=== PATIENT | female | born 1970 | race American Indian/Alaskan Native ===

== ENCOUNTER 2019-05-11 11:00 | Emergency (ER) | payer MEDICARE ==
--- NOTE | 2019-05-11 11:13 | Event Note ---
ED Screening Note Date of service: 05/11/19 Time: 11:12 ED Screening Note: 49 y/o female comes in for psych eval. This initial assessment/diagnostic orders/clinical plan/treatment(s) is/are subject to change based on patients health status, clinical progression and re- assessment by fellow clinical providers in the ED. Further treatment and workup at subsequent clinical providers discretion. Patient/guardian urged not to elope from the ED as their condition may be serious if not clinically assessed and managed. Initial orders include:
[2019-05-11 11:40] LABS: Basophils # (Auto) 0.1 K/mm3 (0.0-0.1); Basophils % (Auto) 1.1 % (0.0-1.8); Eosinophils # (Auto) 0.1 K/mm3 (0.0-0.4); Eosinophils % (Auto) 0.8 % (0.0-4.3); Hemoglobin 13.5 gm/dl (10.1-14.3); Lymphocytes # (Auto) 2.8 K/mm3 (1.2-5.4); Lymphocytes % (Auto) 21.9 % (13.4-35.0); Mean Corpuscular HGB Conc 33 % (30-34); Mean Corpuscular Volume 79 fl (79-97); Monocytes # (Auto) 0.9 K/mm3 (0.0-0.8); Monocytes % (Auto) 7.4 % (0.0-7.3); Platelet Count 373 K/mm3 (140-440); Red Blood Count 5.19 M/mm3 (3.65-5.03); Red Cell Distribution Width 16.6 % (13.2-15.2)
[2019-05-11 12:03] LABS: BUN/Creatinine Ratio 23; Blood Urea Nitrogen 18 mg/dL (7-17); Calcium 9.2 mg/dL (8.4-10.2); Hemolysis Index 8
--- NOTE | 2019-05-11 12:15 | Emergency Department Report ---
ED Psych HPI - General Chief Complaint: Psych Stated Complaint: SI Time Seen by Provider: 05/11/19 11:12 Source: patient Mode of arrival: Ambulatory - History of Present Illness Initial Comments: 49-year-old female with a history of psychiatric disorder residing at the [facility] since this morning. She states that she was supposed to get transport to a homeless [facility]. However transport did not arrive and she claims she was just released. She states that she has multiple medical problems to include diabetes arthritis and requires a walker to ambulate. Thereby she became depressed and suicidal secondary to her homelessness. She is cheerful and quite honest about her predicament. She is not taking an overdose or expressible defined a plan. MD Complaint: suicidal ideation, feels depressed -: hour(s) Associated Psychiatric Symptoms: none, other History of same: Yes Quality: constant Improves With: none Worsens With: none Context: significant life stressor Associated Symptoms: denies other symptoms Treatments Prior to Arrival: none - Related Data Home Medications Medication Instructions Recorded Confirmed Last Taken Amlodipine Besylate [Norvasc] 10 mg PO ONCE 05/11/19 05/11/19 Unknown Benztropine Mesylate 0.5 mg PO TID 05/11/19 05/11/19 Unknown Gabapentin [Neurontin] 100 mg PO Q6HR 05/11/19 05/11/19 Unknown Lisinopril [Zestril TAB] 10 mg PO QDAY 05/11/19 05/11/19 Unknown Paliperidone Palmitate(Nf) [Invega 234 mg IM 05/11/19 05/11/19 Unknown Sustenna(Nf)] Sertraline [Zoloft] 50 mg PO QDAY 05/11/19 05/11/19 Unknown Trazodone HCl 50 mg PO 05/11/19 Unknown metFORMIN [Glucophage] 500 mg PO BID 05/11/19 05/11/19 Unknown Allergies Allergy/AdvReac Type Severity Reaction Status Date / Time No Known Allergies Allergy Unverified 05/11/19 11:04 ED Review of Systems ROS: Stated complaint: SI Other details as noted in HPI Constitutional: denies: chills, fever Eyes: denies: eye pain, eye discharge, vision change ENT: denies: ear pain, throat pain Respiratory: denies: cough, shortness of breath, wheezing Cardiovascular: denies: chest pain, palpitations Endocrine: no symptoms reported Gastrointestinal: denies: abdominal pain, nausea, diarrhea Genitourinary: denies: urgency, dysuria, discharge Musculoskeletal: denies: back pain, joint swelling, arthralgia Skin: denies: rash, lesions Neurological: denies: headache, weakness, paresthesias Psychiatric: depression, suicidal thoughts. denies: anxiety Hematological/Lymphatic: denies: easy bleeding, easy bruising ED Past Medical Hx - Past Medical History Previous Medical History?: Yes Hx Hypertension: Yes Hx Psychiatric Treatment: Yes (Depression, Bi Polar, Schizoaffective disorder) - Surgical History Past Surgical History?: Yes Hx Appendectomy: Yes Additional Surgical History: D and C - Social History Smoking Status: Current Every Day Smoker Substance Use Type: None - Medications Home Medications: Home Medications Medication Instructions Recorded Confirmed Last Taken Type Amlodipine Besylate [Norvasc] 10 mg PO ONCE 05/11/19 05/11/19 Unknown History Benztropine Mesylate 0.5 mg PO TID 05/11/19 05/11/19 Unknown History Gabapentin [Neurontin] 100 mg PO Q6HR 05/11/19 05/11/19 Unknown History Lisinopril [Zestril TAB] 10 mg PO QDAY 05/11/19 05/11/19 Unknown History Paliperidone Palmitate(Nf) [Invega 234 mg IM 05/11/19 05/11/19 Unknown History Sustenna(Nf)] Sertraline [Zoloft] 50 mg PO QDAY 05/11/19 05/11/19 Unknown History Trazodone HCl 50 mg PO 05/11/19 Unknown History metFORMIN [Glucophage] 500 mg PO BID 05/11/19 05/11/19 Unknown History ED Physical Exam - General Limitations: Physical Limitation General appearance: alert, in no apparent distress, obese - Head Head exam: Present: atraumatic, normocephalic - Eye Eye exam: Present: normal appearance. Absent: scleral icterus - ENT ENT exam: Present: mucous membranes moist - Neck Neck exam: Present: normal inspection. Absent: meningismus - Respiratory Respiratory exam: Present: normal lung sounds bilaterally. Absent: respiratory distress - Cardiovascular Cardiovascular Exam: Present: regular rate, normal rhythm. Absent: systolic murmur, diastolic murmur, rubs, gallop - GI/Abdominal GI/Abdominal exam: Present: soft, normal bowel sounds. Absent: tenderness, guarding - Extremities Exam Extremities exam: Present: normal inspection - Back Exam Back exam: Present: normal inspection - Neurological Exam Neurological exam: Present: alert, oriented X3, CN II-XII intact. Absent: motor sensory deficit - Psychiatric Psychiatric exam: Present: normal affect, anxious - Skin Skin exam: Present: warm, dry, intact, normal color. Absent: rash ED Course Vital Signs 05/11/19 11:09 Temperature 98.0 F Pulse Rate 111 H Respiratory 24 Rate Blood Pressure 113/55 O2 Sat by Pulse 97 Oximetry - Reevaluation(s) Reevaluation #1: Mental health to see. The patient's suicidal ideation and appears to be entirely dependent on her homelessness. Therefore, if mental health does not conclude that she is a suicidal risk and she will be assisted with case management. 05/11/19 12:31 Reevaluation #2: 1013 was executed. The patient will be placed in a fci or psychiatric facility pending decision by the psychiatric staff. 05/11/19 19:18 ED Medical Decision Making - Lab Data Result diagrams: 05/11/19 11:21 05/11/19 11:21 Laboratory Results - last 24 hr 05/11/19 05/11/19 05/11/19 11:21 11:21 11:21 WBC 12.6 H RBC 5.19 H Hgb 13.5 Hct 41.0 MCV 79 MCH 26 L MCHC 33 RDW 16.6 H Plt Count 373 Lymph % (Auto) 21.9 Daniels % (Auto) 7.4 H Eos % (Auto) 0.8 Baso % (Auto) 1.1 Lymph # 2.8 Daniels # 0.9 H Eos # 0.1 Baso # 0.1 Seg Neutrophils % 68.8 Seg Neutrophils # 8.7 H Sodium 141 Potassium 4.5 Chloride 101.6 Carbon Dioxide 25 Anion Gap 19 BUN 18 H Creatinine 0.8 Estimated GFR > 60 BUN/Creatinine Ratio 23 Glucose 80 Calcium 9.2 Salicylates < 0.3 L Acetaminophen Plasma/Serum Alcohol 05/11/19 05/11/19 11:21 11:21 WBC RBC Hgb Hct MCV MCH MCHC RDW Plt Count Lymph % (Auto) Daniels % (Auto) Eos % (Auto) Baso % (Auto) Lymph # Daniels # Eos # Baso # Seg Neutrophils % Seg Neutrophils # Sodium Potassium Chloride Carbon Dioxide Anion Gap BUN Creatinine Estimated GFR BUN/Creatinine Ratio Glucose Calcium Salicylates Acetaminophen < 5.0 L Plasma/Serum Alcohol < 0.01 Critical care attestation.: If time is entered above; I have spent that time in minutes in the direct care of this critically ill patient, excluding procedure time. ED Disposition Clinical Impression: Suicidal ideation Depression Qualifiers: Depression Type: unspecified Qualified Code(s): F32.9 - Major depressive disorder, single episode, unspecified Disposition: DC/TX-65 PSY HOSP/PSY UNIT Is pt being admited?: No Does the pt Need Aspirin: No Condition: Stable Time of Disposition: 19:18
[2019-05-11 15:22] LABS: Bilirubin,Urine NEG (Negative); Blood,Urine NEG (Negative); Color,Urine Straw (Yellow); Mucus,Urine FEW /HPF; Protein,Urine <15 mg/dL mg/dL (Negative); RBC,Urine < 1.0 /HPF (0.0-6.0); Urobilinogen,Urine < 2.0 mg/dL (<2.0); WBC,Urine < 1.0 /HPF (0.0-6.0)
[2019-05-11 15:36] LABS: Amphetamine Screen,Urine PRESUMPTIVE NEGATIVE; Benzodiazepines Screen,Urine PRESUMPTIVE NEGATIVE; Cannabinoid Screen,Urine PRESUMPTIVE NEGATIVE; Cocaine Screen,Urine PRESUMPTIVE NEGATIVE; Methadone Screen,Urine PRESUMPTIVE NEGATIVE; Opiate Screen,Urine PRESUMPTIVE NEGATIVE
[2019-05-11] MEDS ORDERED: TYLENOL PO PRN (19:32)
[2019-05-11] MEDS ORDERED: MILK OF MAGNESIA PO PRN (19:32)
[2019-05-11] MEDS ORDERED: ALUM-MAG HYDROX-SIMETH 200-200-20MG/5ML PO PRN (19:32)
[2019-05-11] MEDS: NORVASC PO SCH (22:04)
[2019-05-11] MEDS: ZESTRIL PO SCH (22:04)
[2019-05-11] MEDS: ZOLOFT PO SCH (22:05)
[2019-05-11] MEDS: NEURONTIN PO SCH (22:05)
[2019-05-11] MEDS: COGENTIN PO SCH (22:05)
[2019-05-11] MEDS: DESYREL PO SCH (22:05)
[2019-05-11] MEDS: GLUCOPHAGE PO SCH (22:05)
--- NOTE | 2019-05-12 10:44 | Consultation ---
History of Present Illness - Reason for Consult Consult date: 05/12/19 Reason for consult: Mental Health Evaluation Requesting physician: EMILIE DECKER - Chief Complaint Chief complaint: "I need help because I'm homeless' - History of Present Psychiatric Illness 49 y.o. AA female who presented to the ER for SI's and homelessness. Today the patient was calm and cooperative during the assessment. She stated that she was recently discharged from [facility] and was supposed to go to a retirement. She sta kayla that the retirement wasn't notified that she was arriving so she became upset. She stated that she didn't know what to do, so she came to the ER and endorsed SI's to get help. She stated that all she want is a referral to a retirement. She denies SI/HI's and AVH's. She denies erratic sleep and a poor appetite. She denies recreational drug use and alcohol consumption (etoh). Medications and Allergies Allergies Allergy/AdvReac Type Severity Reaction Status Date / Time No Known Allergies Allergy Unverified 05/11/19 11:04 Home Medications Medication Instructions Recorded Confirmed Last Taken Type Amlodipine Besylate [Norvasc] 10 mg PO ONCE 05/11/19 05/11/19 Unknown History Benztropine Mesylate 0.5 mg PO TID 05/11/19 05/11/19 Unknown History Gabapentin [Neurontin] 100 mg PO Q6HR 05/11/19 05/11/19 Unknown History Lisinopril [Zestril TAB] 10 mg PO QDAY 05/11/19 05/11/19 Unknown History Paliperidone Palmitate(Nf) [Invega 234 mg IM 05/11/19 05/11/19 Unknown History Sustenna(Nf)] Sertraline [Zoloft] 50 mg PO QDAY 05/11/19 05/11/19 Unknown History Trazodone HCl 50 mg PO 05/11/19 Unknown History metFORMIN [Glucophage] 500 mg PO BID 05/11/19 05/11/19 Unknown History Active Meds: Active Medications Acetaminophen (Tylenol) 650 mg PO Q4HR PRN PRN Reason: Pain MILD(1-3)/Fever >100.5/CEE Al Hydrox/Mg Hydrox/Simethicone (Alum-Mag Hydrox-Simeth [id number]/5ml) 30 ml PO Q4HR PRN PRN Reason: Indigestion Amlodipine Besylate (Norvasc) 5 mg PO QDAY [facility] Last Admin: 05/11/19 22:04 Dose: 5 mg Documented by: Benztropine Mesylate (Cogentin) 0.5 mg PO BID [facility] Last Admin: 05/11/19 22:05 Dose: 0.5 mg Documented by: Gabapentin (Neurontin) 100 mg PO BID [facility] Last Admin: 05/11/19 22:05 Dose: 100 mg Documented by: Lisinopril (Zestril) 10 mg PO QDAY [facility] Last Admin: 05/11/19 22:04 Dose: 10 mg Documented by: Magnesium Hydroxide (Milk Of Magnesia) 30 ml PO Q12HR PRN PRN Reason: Constipation Metformin HCl (Glucophage) 500 mg PO BID [facility] Last Admin: 05/11/19 22:05 Dose: 500 mg Documented by: Sertraline HCl (Zoloft) 50 mg PO QDAY [facility] Last Admin: 05/11/19 22:05 Dose: 50 mg Documented by: Trazodone HCl (Desyrel) 50 mg PO QHS [facility] Last Admin: 05/11/19 22:05 Dose: 50 mg Documented by: Past psychiatric history - Past Medical History Past Medical History: hypertension Past Surgical History: Other (D and C) - past Psychiatric treatment and history psychiatric treatment history: Several inpatient psy settings. Denies a fam psy hx.l - Social History Social history: other (Homeless) Mental Status Exam - Vital signs Last Vital Signs Temp 98.5 F 05/12/19 01:00 Pulse 69 05/12/19 01:00 Resp 18 05/12/19 01:00 BP 116/72 05/12/19 01:00 Pulse Ox 97 05/12/19 01:00 - Exam Narrative exam: MSE: Appearance: calm, cooperative Behavior: regular eye contact Speech: regular rate and tone Mood: "okay" Affect: congruent to mood Thought Process: linear Thought Content: denies SI/HI's and AVH's Motor Activity: sitting up in bed Cognition: A/O x3 Insight: fair Judgment: fair Results Result Diagrams: 05/11/19 11:21 05/11/19 11:21 Abnormal lab results 08/24/19 08/24/19 08/24/19 Range/Units 11:21 11:21 11:21 WBC 12.6 H (4.5-11.0) K/mm3 RBC 5.19 H (3.65-5.03) M/mm3 MCH 26 L (28-32) pg RDW 16.6 H (13.2-15.2) % [place] % (Auto) 7.4 H (0.0-7.3) % [place] # 0.9 H (0.0-0.8) K/mm3 Seg Neutrophils # 8.7 H (1.8-7.7) K/mm3 BUN 18 H (7-17) mg/dL Salicylates < 0.3 L (2.8-20.0) mg/dL Acetaminophen (10.0-30.0) ug/mL 05/11/19 Range/Units 11:21 WBC (4.5-11.0) K/mm3 RBC (3.65-5.03) M/mm3 MCH (28-32) pg RDW (13.2-15.2) % [place] % (Auto) (0.0-7.3) % [place] # (0.0-0.8) K/mm3 Seg Neutrophils # (1.8-7.7) K/mm3 BUN (7-17) mg/dL Salicylates (2.8-20.0) mg/dL Acetaminophen < 5.0 L (10.0-30.0) ug/mL All other labs normal. Assessment and Plan Assessment and plan: Impression: Hx of Mood DO. Today the patient was calm and cooperative during the assessment. The patient is no threat to self. Recommendation/Plan: Rescind 1013. The patient do not need any prescription. The patient receive the monthly Invega injection. Case Mgmt informed that the patient will need assistance with placement. Dispo: The patient can follow up with [facility] for outpatient psy services. Will staff with Dr Noelle Gutierrez.
[2019-05-12] MEDS: GLUCOPHAGE PO SCH ×2 (11:00→22:27)
[2019-05-12] MEDS: ZESTRIL PO SCH (11:00)
[2019-05-12] MEDS: NEURONTIN PO SCH ×2 (11:00→22:27)
[2019-05-12] MEDS: COGENTIN PO SCH ×2 (11:00→22:26)
[2019-05-12] MEDS: ZOLOFT PO SCH (11:00)
[2019-05-12] MEDS: NORVASC PO SCH (11:00)
[2019-05-12] MEDS: DESYREL PO SCH (22:26)
[2019-05-13 07:51] VITALS: BP 126/74
[2019-05-13] MEDS: COGENTIN PO SCH (10:50)
[2019-05-13] MEDS: NEURONTIN PO SCH (10:50)
[2019-05-13] MEDS: ZESTRIL PO SCH (10:50)
[2019-05-13] MEDS: ZOLOFT PO SCH (10:50)
[2019-05-13] MEDS: NORVASC PO SCH (10:50)
[2019-05-13] MEDS: GLUCOPHAGE PO SCH (10:50)
== END 2019-05-13 11:00 | disposition home or self-care (01) ==
LOC: EEVIPCON 11:00 → ED 11:00
DX: F31.9 Bipolar disorder, unspecified (principal); F20.9 Schizophrenia, unspecified; I10 Essential (primary) hypertension; F17.200 Nicotine dependence, unspecified, uncomplicated; Z90.49 Acquired absence of other specified parts of digestive tract; Z98.890 Other specified postprocedural states; Z79.899 Other long term (current) drug therapy
CPT/HCPCS: 36415; 80048; 80307; 80320; 81001; 82962; 85025; 99284; 99285; G0480

== ENCOUNTER 2019-05-15 20:14 | Emergency (ER) | payer SELFPAY ==
[2019-05-15 21:35] VITALS: BP 118/67
--- NOTE | 2019-05-15 22:05 | Event Note ---
ED Screening Note Date of service: 05/15/19 Time: 21:34 ED Screening Note: presents with left breast side pain/swelling and d/c This initial assessment/diagnostic orders/clinical plan/treatment(s) is/are subject to change based on patients health status, clinical progression and re- assessment by fellow clinical providers in the ED. Further treatment and workup at subsequent clinical providers discretion. Patient/guardian urged not to elope from the ED as their condition may be serious if not clinically assessed and managed. Initial orders include:
--- NOTE | 2019-05-16 00:18 | Emergency Department Report ---
Abscess Boil HPI - HPI Chief Complaint: Skin/Abscess/Foreign Body Stated Complaint: LUMP ON LEFT BREAST Time Seen by Provider: 05/15/19 21:32 Duration: Today Location: Chest Severity: Moderate History: Yes Pain, No Fever, No Purulent Drainage, No Numbness, No Foreign Body, No Previous History, No Insect Bite HPI: 49 year old -[place] female presents to the emergency room stating she has a lump on the left breast that she noticed it this morning. Patient reports that the lump is painful denies any discharge. Patient does have a past medical history of diabetes and schizo effective disorder bipolar and obesity as well as hypertension and arthritis. Home Medications: Home Medications Medication Instructions Recorded Confirmed Last Taken Amlodipine Besylate [Norvasc] 10 mg PO ONCE 05/11/19 05/11/19 Unknown Benztropine Mesylate 0.5 mg PO TID 05/11/19 05/11/19 Unknown Gabapentin [Neurontin] 100 mg PO Q6HR 05/11/19 05/11/19 Unknown Lisinopril [Zestril TAB] 10 mg PO QDAY 05/11/19 05/11/19 Unknown Paliperidone Palmitate(Nf) [Invega 234 mg IM 05/11/19 05/11/19 Unknown Sustenna(Nf)] Sertraline [Zoloft] 50 mg PO QDAY 05/11/19 05/11/19 Unknown Trazodone HCl 50 mg PO 05/11/19 Unknown metFORMIN [Glucophage] 500 mg PO BID 05/11/19 05/11/19 Unknown Previous Rx's Medication Instructions Recorded Last Taken Type Ibuprofen [Motrin 800 MG tab] 800 mg PO Q8HR PRN #15 tablet 05/16/19 Unknown Rx cephALEXin [Keflex] 500 mg PO Q12HR #20 cap 05/16/19 Unknown Rx Allergies/Adverse Reactions: Allergies Allergy/AdvReac Type Severity Reaction Status Date / Time No Known Allergies Allergy Unverified 05/11/19 11:04 ED Review of Systems ROS: Stated complaint: LUMP ON LEFT BREAST Other details as noted in HPI Comment: All other systems reviewed and negative Constitutional: denies: chills, fever Eyes: denies: eye pain, eye discharge, vision change ENT: denies: ear pain, throat pain Respiratory: denies: cough, shortness of breath, wheezing Cardiovascular: denies: chest pain, palpitations Endocrine: no symptoms reported Gastrointestinal: denies: abdominal pain, nausea, diarrhea Genitourinary: denies: urgency, dysuria, discharge Musculoskeletal: denies: back pain, joint swelling, arthralgia Skin: denies: rash, lesions Neurological: denies: headache, weakness, paresthesias Psychiatric: denies: anxiety, depression Hematological/Lymphatic: denies: easy bleeding, easy bruising ED Past Medical Hx - Past Medical History Previous Medical History?: Yes Hx Hypertension: Yes Hx Arthritis: Yes Hx Psychiatric Treatment: Yes (Depression, Bi Polar, Schizoaffective disorder) Additional medical history: Obesity - Surgical History Past Surgical History?: Yes Hx Appendectomy: Yes Additional Surgical History: D and C - Social History Smoking Status: Current Every Day Smoker Substance Use Type: Alcohol, Marijuana - Medications Home Medications: Home Medications Medication Instructions Recorded Confirmed Last Taken Type Amlodipine Besylate [Norvasc] 10 mg PO ONCE 05/11/19 05/11/19 Unknown History Benztropine Mesylate 0.5 mg PO TID 05/11/19 05/11/19 Unknown History Gabapentin [Neurontin] 100 mg PO Q6HR 05/11/19 05/11/19 Unknown History Lisinopril [Zestril TAB] 10 mg PO QDAY 05/11/19 05/11/19 Unknown History Paliperidone Palmitate(Nf) [Invega 234 mg IM 05/11/19 05/11/19 Unknown History Sustenna(Nf)] Sertraline [Zoloft] 50 mg PO QDAY 05/11/19 05/11/19 Unknown History Trazodone HCl 50 mg PO 05/11/19 Unknown History metFORMIN [Glucophage] 500 mg PO BID 05/11/19 05/11/19 Unknown History Ibuprofen [Motrin 800 MG tab] 800 mg PO Q8HR PRN #15 tablet 05/16/19 Unknown Rx cephALEXin [Keflex] 500 mg PO Q12HR #20 cap 05/16/19 Unknown Rx ED Abscess Boil Physical Exam - Exam General: Vital signs noted. No distress. Alert and acting appropriately. Size: 1 cm Exam: Yes Tenderness, Yes Surrounding Cellulites/Erythema, No Fluctuance, No Lymphangitis, No Crepitation, No Heart Murmur, No Normal Neurologic Exam, No Normal Circulation ED Course Vital Signs 05/15/19 21:32 Temperature 98 F Pulse Rate 103 H Respiratory 18 Rate Blood Pressure 118/67 O2 Sat by Pulse 98 Oximetry Critical care attestation.: If time is entered above; I have spent that time in minutes in the direct care of this critically ill patient, excluding procedure time. ED Medical Decision Making - Medical Decision Making 49 year old -[place] female presents to the emergency room stating she has a lump on the left breast that she noticed it this morning. Patient reports that the lump is painful denies any discharge. Patient does have a past medical history of diabetes and schizo effective disorder bipolar and obesity as well as hypertension and arthritis. Patient does not need an incision and drainage at this time. Patient be placed on Keflex 500 mg twice a day for 10 days and ibuprofen for pain management. Patient is to follow-up with her primary care provider for further evaluation. ED Disposition Clinical Impression: Cellulitis of breast Disposition: DC-01 TO HOME OR SELFCARE Is pt being admited?: No Does the pt Need Aspirin: No Condition: Stable Instructions: Cellulitis (ED) Additional Instructions: Complete antibiotics as prescribed pain medication if needed follow up with her primary care provider for further evaluation. Prescriptions: cephALEXin [Keflex] 500 mg PO Q12HR #20 cap Ibuprofen [Motrin 800 MG tab] 800 mg PO Q8HR PRN #15 tablet PRN Reason: Pain , Severe (7-10) Referrals: [facility] [Outside] - 3-5 Days [facility] [Outside] - 3-5 Days
== END 2019-05-16 00:25 | disposition home or self-care (01) ==
LOC: ED 20:14
DX: N61.0 Mastitis without abscess (principal); I10 Essential (primary) hypertension; F31.9 Bipolar disorder, unspecified; F17.200 Nicotine dependence, unspecified, uncomplicated

== ENCOUNTER 2019-05-20 15:52 | Emergency (ER) | payer SELFPAY ==
--- NOTE | 2019-05-20 16:32 | Emergency Department Report ---
<ALICIA TINSLEY - Last Filed: 05/20/19 16:58> ED Psych HPI - General Chief Complaint: Psych Stated Complaint: MH EVAL Time Seen by Provider: 05/20/19 16:14 Source: EMS ( EMS documentation not available at time of chart dictation ) - Related Data Home Medications Medication Instructions Recorded Confirmed Last Taken Amlodipine Besylate [Norvasc] 10 mg PO ONCE 05/11/19 05/11/19 Unknown Benztropine Mesylate 0.5 mg PO TID 05/11/19 05/11/19 Unknown Gabapentin [Neurontin] 100 mg PO Q6HR 05/11/19 05/11/19 Unknown Lisinopril [Zestril TAB] 10 mg PO QDAY 05/11/19 05/11/19 Unknown Paliperidone Palmitate(Nf) [Invega 234 mg IM 05/11/19 05/11/19 Unknown Sustenna(Nf)] Sertraline [Zoloft] 50 mg PO QDAY 05/11/19 05/11/19 Unknown Trazodone HCl 50 mg PO 05/11/19 Unknown metFORMIN [Glucophage] 500 mg PO BID 05/11/19 05/11/19 Unknown Previous Rx's Medication Instructions Recorded Last Taken Type Ibuprofen [Motrin 800 MG tab] 800 mg PO Q8HR PRN #15 tablet 05/16/19 Unknown Rx cephALEXin [Keflex] 500 mg PO Q12HR #20 cap 05/16/19 Unknown Rx Allergies Allergy/AdvReac Type Severity Reaction Status Date / Time No Known Allergies Allergy Unverified 05/11/19 11:04 ED Past Medical Hx - Medications Home Medications: Home Medications Medication Instructions Recorded Confirmed Last Taken Type Amlodipine Besylate [Norvasc] 10 mg PO ONCE 05/11/19 05/11/19 Unknown History Benztropine Mesylate 0.5 mg PO TID 05/11/19 05/11/19 Unknown History Gabapentin [Neurontin] 100 mg PO Q6HR 05/11/19 05/11/19 Unknown History Lisinopril [Zestril TAB] 10 mg PO QDAY 05/11/19 05/11/19 Unknown History Paliperidone Palmitate(Nf) [Invega 234 mg IM 05/11/19 05/11/19 Unknown History Sustenna(Nf)] Sertraline [Zoloft] 50 mg PO QDAY 05/11/19 05/11/19 Unknown History Trazodone HCl 50 mg PO 05/11/19 Unknown History metFORMIN [Glucophage] 500 mg PO BID 05/11/19 05/11/19 Unknown History Ibuprofen [Motrin 800 MG tab] 800 mg PO Q8HR PRN #15 tablet 05/16/19 Unknown Rx cephALEXin [Keflex] 500 mg PO Q12HR #20 cap 05/16/19 Unknown Rx ED Course - Reevaluation(s) Reevaluation #1: 05/20/19 16:58 Patient seen and examined in conjunction with nurse practitioner. Patient admits to consuming recreational drugs today. She will not, Homicidality or Suicidality. She Does Not Endorse Any Medical Complaints at This Time. She Has Somewhat of a Flat Affect. She Walks with a Steady Gait. Her Physical Exam Is Unremarkable except for Morbid Obesity and Mild Tachycardia. She Is Reading a Book at This Time. Placed on ER Hold, at This Point Time, the Stomach Criteria for 1013, Plan Is to Check Basic Laboratory Studies to Exclude Emergent Toxic ologic Ingestion, Obtain Psychiatric Consultation. Anticipate Discharge with Outpatient Follow-Up. ED Medical Decision Making - Lab Data Vital Signs 05/20/19 16:06 Temperature 98.4 F Pulse Rate 82 Respiratory 18 Rate Blood Pressure 117/50 - EKG Data 05/20/19 16:59 This EKG was limited by motion artifact. This is a sinus tachycardia, with a borderline left axis deviation, premature ventricular contractions, QTC is prolonged, no endorsement of chest pain, the EKG is abnormal, the EKG is not consistent with ST elevation myocardial infarction. ED Disposition Clinical Impression: Substance abuse Disposition: DC-01 TO HOME OR SELFCARE Condition: Stable Instructions: Medical Clearance for Substance Abuse Treatment (ED) Referrals: [facility] [Outside] - 3-5 Days [facility] [Outside] - 3-5 Days Forms: Work/School Release Form(ED) <KATYA PERSON - Last Filed: 05/20/19 20:30> ED Psych HPI - General Source: EMS Mode of arrival: Stretcher Limitations: No Limitations - History of Present Illness Initial Comments: Patient is a 49-year-old -[place] female with history of schizo, bipolar, and polysubstance arrived via ems, no ems trip sheet available, pt states she she is here today because she is to used drugs this afternoon, patient states she used drugs today not clear what she used, patient denies SI or HI at this time, although does have periods of being nonverbal with nursing. Patient does make to contact and answers questions vaguely , but again denies SI or HI at this time, states she wants to go to rehabilitation. Complaint: feels depressed Onset/Timin -: days(s) Associated Psychiatric Symptoms: depression, other (substance ) History of same: Yes Quality: intermittent Improves With: none Worsens With: drug use Context: recent drug abuse Associated Symptoms: denies other symptoms Treatments Prior to Arrival: none ED Review of Systems ROS: Stated complaint: MH EVAL Other details as noted in HPI Constitutional: denies: chills, fever Eyes: denies: eye pain, eye discharge, vision change ENT: denies: ear pain, throat pain Respiratory: denies: cough, shortness of breath, wheezing Cardiovascular: denies: chest pain, palpitations Endocrine: no symptoms reported Gastrointestinal: denies: abdominal pain, nausea, diarrhea Genitourinary: denies: urgency, dysuria, discharge Musculoskeletal: denies: back pain, joint swelling, arthralgia Skin: denies: rash, lesions Neurological: denies: headache, weakness, paresthesias Psychiatric: depression, other (substance ) Hematological/Lymphatic: denies: easy bleeding, easy bruising ED Past Medical Hx - Past Medical History Hx Hypertension: Yes Hx Arthritis: Yes Hx Psychiatric Treatment: Yes (Depression, Bi Polar, Schizoaffective disorder) Additional medical history: Obesity - Surgical History Hx Appendectomy: Yes Additional Surgical History: D and C - Social History Smoking Status: Unknown if ever smoked ED Physical Exam - General Limitations: No Limitations, Other General appearance: alert, in no apparent distress - Head Head exam: Present: atraumatic, normocephalic - Eye Eye exam: Present: normal appearance, PERRL, EOMI Pupils: Present: normal accommodation - ENT ENT exam: Present: mucous membranes moist - Neck Neck exam: Present: normal inspection, full ROM - Respiratory Respiratory exam: Present: normal lung sounds bilaterally. Absent: respiratory distress, wheezes, stridor - Cardiovascular Cardiovascular Exam: Present: regular rate, normal rhythm, normal heart sounds. Absent: systolic murmur, diastolic murmur, rubs, gallop - GI/Abdominal GI/Abdominal exam: Present: soft, normal bowel sounds, other (obese ). Absent: distended, tenderness - Rectal Rectal exam: Present: deferred - External exam: Present: other (exam deferred ) - Extremities Exam Extremities exam: Present: normal inspection, full ROM, normal capillary refill - Back Exam Back exam: Present: normal inspection, full ROM. Absent: tenderness, CVA tenderness (R), CVA tenderness (L), rash noted - Neurological Exam Neurological exam: Present: alert, oriented X3, CN II-XII intact, normal gait, reflexes normal. Absent: motor sensory deficit - Psychiatric Psychiatric exam: Present: depressed, flat affect. Absent: homicidal ideation, suicidal ideation - Skin Skin exam: Present: warm, dry, intact, normal color. Absent: rash ED Course Vital Signs 05/20/19 05/20/19 05/20/19 16:06 19:18 19:21 Temperature 98.4 F Pulse Rate 82 76 Respiratory 18 18 Rate Blood Pressure 117/50 Blood Pressure [Right] O2 Sat by Pulse Oximetry 05/20/19 20:03 Temperature 98.4 F Pulse Rate 95 H Respiratory 20 Rate Blood Pressure Blood Pressure 142/93 [Right] O2 Sat by Pulse 100 Oximetry - Reevaluation(s) Reevaluation #2: Psych PET consulted will see on rounds, pt naren with nad, reading book, flat affect no SI no HI 05/20/19 17:57 ED Medical Decision Making - Lab Data Result diagrams: 05/20/19 16:51 05/20/19 16:51 Labs 05/20/19 05/20/19 05/20/19 16:51 16:51 16:51 WBC 13.3 H RBC 5.02 Hgb 13.2 Hct 39.4 MCV 78 L MCH 26 L MCHC 34 RDW 17.0 H Plt Count 330 Sodium 141 Potassium 3.9 Chloride 102.2 Carbon Dioxide 25 Anion Gap 18 BUN 16 Creatinine 1.0 Estimated GFR > 60 BUN/Creatinine Ratio 16 Glucose 112 H Calcium 9.5 Total Bilirubin 0.20 AST 13 ALT 13 Alkaline Phosphatase 92 Total Creatine Kinase 144 H Total Protein 7.4 Albumin 3.9 Albumin/Globulin Ratio 1.1 Salicylates Acetaminophen Valproic Acid Plasma/Serum Alcohol 05/20/19 05/20/19 05/20/19 16:51 16:51 16:51 WBC RBC Hgb Hct MCV MCH MCHC RDW Plt Count Sodium Potassium Chloride Carbon Dioxide Anion Gap BUN Creatinine Estimated GFR BUN/Creatinine Ratio Glucose Calcium Total Bilirubin AST ALT Alkaline Phosphatase Total Creatine Kinase Total Protein Albumin Albumin/Globulin Ratio Salicylates < 0.3 L Acetaminophen < 5.0 L Valproic Acid < 2.8 L Plasma/Serum Alcohol < 0.01 - EKG Data EKG shows normal: sinus rhythm (Sinus tachycardia with Multiple PVCs ekg interp be ed attending. ) Rate: tachycardia - EKG Data When compared to previous EKG there are: previous EKG unavailable - Medical Decision Making Patient cleared via PET exam , cleared for DC to home , there is no SI or HI at this time, patient has prescription in hand for Keflex by mouth for previous visit, left breast abscess , site is healing , improved per patient, no drainage ,mild erythema, pt is tolerating po hydration at this time., patient is alert oriented 3 ambulatory with steady gait at this time patient will be DC'd home in stable condition via family member and POV patient will follow up with PCP in 2 days and psychiatrist in 2 days as scheduled. Critical care attestation.: If time is entered above; I have spent that time in minutes in the direct care of this critically ill patient, excluding procedure time. ED Disposition Is pt being admited?: No Does the pt Need Aspirin: No Time of Disposition: 20:22
[2019-05-20] MEDS ORDERED: ATIVAN IM PRN (16:38)
[2019-05-20] MEDS ORDERED: HALDOL IM PRN (16:38)
[2019-05-20] MEDS ORDERED: ZESTRIL PO SCH (17:00)
[2019-05-20] MEDS ORDERED: NORVASC PO SCH (17:00)
[2019-05-20 17:26] LABS: Hematocrit 39.4 % (30.3-42.9); Hemoglobin 13.2 gm/dl (10.1-14.3); Mean Corpuscular HGB Conc 34 % (30-34); Mean Corpuscular Volume 78 fl (79-97); Platelet Count 330 K/mm3 (140-440); Red Blood Count 5.02 M/mm3 (3.65-5.03)
[2019-05-20 17:30] LABS: Alanine Aminotransferase 13 units/L (7-56); Albumin 3.9 g/dL (3.9-5); BUN/Creatinine Ratio 16; Blood Urea Nitrogen 16 mg/dL (7-17); Calcium 9.5 mg/dL (8.4-10.2); Hemolysis Index 4
[2019-05-20] MEDS: COGENTIN PO SCH ×2 (19:18→20:12)
[2019-05-20 20:04] VITALS: BP 142/93
[2019-05-20] MEDS ORDERED: GLUCOPHAGE PO SCH (22:00)
== END 2019-05-20 20:46 | disposition home or self-care (01) ==
LOC: ED 15:52
DX: F15.10 Other stimulant abuse, uncomplicated (principal); Z79.899 Other long term (current) drug therapy
CPT/HCPCS: 36415; 80053; 80164; 80320; 82550; 85027; 93005; 93010; G0480